=== PATIENT | male | born 2000 | race Caucasian/White ===

== ENCOUNTER 2023-11-25 15:53 | Emergency (ER) | payer BC ==
[2023-11-25] MEDS ORDERED: Prochlorperazine 10 MG/2 ML VIAL ONE (18:55)
[2023-11-25] MEDS ORDERED: diphenhydrAMINE 50 MG/ML VIAL ONE (18:55)
[2023-11-25] MEDS ORDERED: Magnesium 2 GM/50 ML BAG (IN WATER) ONE (18:56)
[2023-11-25 19:23] LABS: #Eosinphils 0.1 10x3/uL (0.0-0.5); #Monocytes 0.5 10x3/uL (0.0-1.1); %Basophils 0.4 % (0.0-2.0); %Eosinophils 1.5 % (0.0-6.0); %Lymphocytes 34.2 % (18.0-47.0); %Monocytes 7.5 % (0.0-10.0); %Neutrophils 56.1 % (40.0-75.0); Hematocrit 40.6 % (38.8-50.0); Hemoglobin 14.3 g/dL (13.5-17.5); Mean Corpuscular HGB CONC 35.2 g/dL (32.0-36.0); Mean Corpuscular Hemoglobin 31.2 pg (27.0-33.0); Mean Corpuscular Volume 88.6 fl (81.2-95.1); Mean Platelet Volume 10.5 fl (7.4-10.4); Platelet Count 186 10x3/uL (150-450); RBC Distribution Width 12.8 % (11.5-14.5); Red Blood Cell (RBC) Count 4.58 10x6/uL (4.32-5.72); White Blood Cell (WBC) Count 7.1 10x3/uL (3.5-10.5)
[2023-11-25 19:28] LABS: ALT (SGPT) 25 U/L (8-55); AST (SGOT) 31 U/L (5-34); Albumin 4.5 g/dL (3.5-5.0); Alkaline Phosphatase 38 U/L (40-110); Anion Gap 14 mmol/L (10-20); BUN (Urea Nitrogen) 12 mg/dL (8.9-20.6); Bilirubin, Total 0.3 mg/dL (0.2-1.2); Calc. Creatinine Clearance 0 mL/min (70-130); Calcium 9.3 mg/dL (7.8-10.44); Carbon Dioxide 22 mmol/L (22-29); Chloride 108 mmol/L (98-107); Estimated GFR 114; Globulin 3.3 g/dL (2.4-3.5); Glucose 93 mg/dL (70-105); Potassium 4.4 mmol/L (3.5-5.1); Protein, Total 7.8 g/dL (6.0-8.3); Sodium 140 mmol/L (136-145)
[2023-11-25] MEDS ORDERED: Dexamethasone 10 MG/ML VIAL ONE (20:15)
== END 2023-11-25 21:56 | disposition home or self-care (01) ==
LOC: CSHERS 15:53
DX: R51.9 Headache, unspecified (principal); S10.91XA Abrasion of unspecified part of neck, initial encounter; X58.XXXA Exposure to other specified factors, initial encounter
CPT/HCPCS: 36415; 70450; 80053; 85025; 94760; 96374; 96375; J0780; J1100; J1200; J3475